=== PATIENT | female | born 1995 | race Caucasian/White ===

== ENCOUNTER 2025-04-16 12:42 | Emergency (ER) | payer MEDICAID ==
[~2025-04-16] VITALS: Ht 165.1 cm; Wt 59.1 kg
[2025-04-16 12:56] VITALS: BP 125/88; PULSE 68; RESP 18; TEMP 99; O2SAT 100
[2025-04-16] MEDS ORDERED: HYDR-4808 PO (14:26)
== END 2025-04-16 15:10 | disposition home or self-care (01) ==
LOC: EMS 13:03
DX: F41.1 Generalized anxiety disorder (principal); F12.10 Cannabis abuse, uncomplicated
CPT/HCPCS: 99283; Z7502